=== PATIENT | female | born 1970 | race Caucasian/White ===

== ENCOUNTER 2019-12-22 00:06 | Emergency (ER) | payer OTHER ==
[2019-12-22] MEDS ORDERED: Zofran 4 MG/2 ML VIAL IV ONE (00:38)
[2019-12-22] MEDS ORDERED: TORAdol 30 mg Injection IV ONE (00:38)
--- NOTE | 2019-12-22 00:38 | ERPHSYRPT ---
- History of Present Illness Time Seen by Provider: 12/22/19 00:33 Historian: patient Exam Limitations: no limitations Physician History: For the past week pt has had LLQ abdominal/Left flank pain and nausea, worse in the past hour. Pt states she has had hematuria for the past 4 days and diaphoresis today. Pt denies chest pain, shortness of air, fever. Allergies/Adverse Reactions: codeine [Codeine] Allergy (Severe, Verified 12/22/19 00:41) SWELLING OF EYES/VOMITING Penicillins Allergy (Severe, Verified 12/22/19 00:41) CONVULSIONS states convulsions strawberry Allergy (Verified 12/22/19 00:41) adhesive Adverse Reaction (Intermediate, Verified 12/22/19 00:41) SKIN TEARS tears skin lactose Adverse Reaction (Mild, Verified 12/22/19 00:41) Diarrhea pneumonia Adverse Reaction (Mild, Uncoded 12/13/14 12:57) FEVER high fever ( pneumonia vaccine) Home Medications: Phentermine HCl [Adipex-P] 37.5 mg PO DAILY 12/22/19 [History] Tamsulosin HCl 0.4 mg [Flomax 0.4 MG] 0.4 mg PO DAILY 12/22/19 [History] Hx Tetanus, Diphtheria Vaccination/Date Given: No Hx Influenza Vaccination/Date Given: No Hx Pneumococcal Vaccination/Date Given: No Travel Risk - International Travel Have you traveled outside of the country in past 3 weeks: No Have you or anyone close to you been diagnosed with or: No Do your reside in a community with a known COVID-19 case?: Yes If Yes where:: pool, in. - Coronavirus Screening Has patient experienced Coronavirus symptoms: No - Review of Systems Constitutional: Other (diaphoresis), No Fever Respiratory: No Dyspnea Cardiac: No Chest Pain Abdominal/Gastrointestinal: Abdominal Pain, Nausea Genitourinary Symptoms: Hematuria All Other Systems: Reviewed and Negative - Past Medical History Pertinent Past Medical History: Yes Neurological History: Migraines ENT History: No Pertinent History Cardiac History: Hypertension Respiratory History: Asthma, Pneumonia Endocrine Medical History: No Pertinent History Musculoskeletal History: Fractures, Rheumatoid Arthritis GI Medical History: Gallbladder Disease History: No Pertinent History Psycho-Social History: No Pertinent History Female Reproductive Disorders: Endometriosis, Other Other Medical History: cyst on ovaries - Past Surgical History Past Surgical History: Yes Neuro Surgical History: No Pertinent History Cardiac: No Pertinent History Respiratory: No Pertinent History Gastrointestinal: Appendectomy, Cholecystectomy Genitourinary: No Pertinent History Musculoskeletal: Orthopedic Surgery Female Surgical History: Hysterectomy Other Surgical History: lt foot surgery with plate screws placed.partial hysterectomy, left ovaries in - Social History Smoking Status: Never smoker Exposure to second hand smoke: No Drug Use: none Patient Lives Alone: No - Nursing Vital Signs Nursing Vital Signs: Initial Vital Signs Temperature 97.6 F 12/22/19 00:27 Pulse Rate 81 12/22/19 00:27 Respiratory Rate 19 12/22/19 00:27 Blood Pressure 157/96 12/22/19 00:27 O2 Sat by Pulse Oximetry 97 12/22/19 00:27 Pain Scale Pain Intensity 5 - Physical Exam General Appearance: alert Eye Exam: eyes nml inspection Ears, Nose, Throat Exam: moist mucous membranes Neck Exam: normal inspection Respiratory Exam: lungs clear Cardiovascular Exam: normal heart sounds Gastrointestinal/Abdomen Exam: soft, normal bowel sounds Extremity Exam: No pedal edema Neurologic Exam: alert, cooperative Skin Exam: warm, dry SpO2 Interpretation: normal SpO2: 97 O2 Delivery: Room Air - Course Nursing assessment & vital signs reviewed: Yes - CT Exams Abdomen/Pelvis CT Interpretation: Tele-radiologist Report (7mm proximal left ureteral stone results in hydronephrosis.) Ordered Tests: Active Orders 24 hr Category Date Time Status IV Insertion STAT Care 12/22/19 00:38 Active ABDOMEN AND PELVIS W/0 CONTRAS [CT] Stat Exams 12/22/19 00:39 Taken AMYLASE Stat Lab 12/22/19 01:04 Completed CBC W DIFF Stat Lab 12/22/19 01:04 Completed CMP Stat Lab 12/22/19 01:04 Completed CULTURE,URINE Stat Lab 12/22/19 02:00 Received HCG QUALITATIVE,SERUM Stat Lab 12/22/19 01:04 Completed LIPASE Stat Lab 12/22/19 01:04 Completed MAGNESIUM Stat Lab 12/22/19 01:04 Completed UA W/RFX UR CULTURE Stat Lab 12/22/19 02:00 Completed Medication Summary Generic Name Dose Route Start Last Admin Trade Name Freq PRN Reason Stop Dose Admin Sodium Chloride 1,000 mls @ 100 mls/hr 12/22/19 00:45 12/22/19 00:51 Sodium Chloride 0.9% 1000 Ml IV 01/21/20 00:44 100 mls/hr .Q10H KAITLIN Administration Discontinued Medications Generic Name Dose Route Start Last Admin Trade Name Juan Pabloq PRN Reason Stop Dose Admin Ketorolac Tromethamine 30 mg 12/22/19 00:38 12/22/19 00:51 Toradol 30 Mg Injection IV 12/22/19 00:39 30 mg STAT ONE Administration Ketorolac Tromethamine Confirm 12/22/19 00:46 Toradol 30 Mg Injection Administered 12/22/19 00:47 Dose 30 mg .ROUTE .STK-MED ONE Ondansetron HCl 4 mg 12/22/19 00:38 12/22/19 00:51 Zofran 4 Mg/2 Ml Vial IV 12/22/19 00:39 4 mg STAT ONE Administration Ondansetron HCl Confirm 12/22/19 00:45 Zofran 4 Mg/2 Ml Vial Administered 12/22/19 00:46 Dose 4 mg .ROUTE .STK-MED ONE Lab/Rad Data: Laboratory Result Diagrams 12/22/19 01:04 12/22/19 01:04 Laboratory Results 12/22/19 12/22/19 12/22/19 Range/Units 02:00 01:04 01:04 WBC (4.0-10.5) K/mm3 RBC (4.1-5.4) M/mm3 Hgb (12.0-16.0) gm/dl Hct (35-47) % MCV (78-100) fl MCH (26-32) pg MCHC (32-36) g/dl RDW (11.5-14.0) % Plt Count (150-450) K/mm3 MPV (7.5-11.0) fl Gran % (36.0-66.0) % Eos # (Auto) (0-0.5) Absolute Lymphs (auto) (1.0-4.6) Absolute Monos (auto) (0.0-1.3) Lymphocytes % (24.0-44.0) % Monocytes % (0.0-12.0) % Eosinophils % (0.00-5.0) % Basophils % (0.0-0.4) % Absolute Granulocytes (1.4-6.9) Basophils # (0-0.4) Sodium (137-145) mmol/L Potassium (3.5-5.1) mmol/L Chloride (98-107) mmol/L Carbon Dioxide (22-30) mmol/L Anion Gap (5-15) MEQ/L BUN (7-17) mg/dL Creatinine (0.52-1.04) mg/dL Estimated GFR ML/MIN Glucose (74-106) mg/dL Calcium (8.4-10.2) mg/dL Magnesium 2.0 (1.6-2.3) mg/dL Total Bilirubin (0.2-1.3) mg/dL AST (14-36) U/L ALT (0-35) U/L Alkaline Phosphatase (38-126) U/L Serum Total Protein (6.3-8.2) g/dL Albumin (3.5-5.0) g/dL Amylase (30-110) U/L Lipase (23-300) U/L Serum , Qual NEGATIVE (Negative) Urine Color YELLOW (YELLOW) Urine Appearance CLEAR (CLEAR) Urine pH 7.0 (5-6) Ur Specific [place] 1.010 (1.005-1.025) Urine Protein NEGATIVE (Negative) Urine Ketones NEGATIVE (NEGATIVE) Urine Blood LARGE (0-5) Jass/ul Urine Nitrite NEGATIVE (NEGATIVE) Urine Bilirubin NEGATIVE (NEGATIVE) Urine Urobilinogen NEGATIVE (0-1) mg/dL Ur Leukocyte Esterase NEGATIVE (NEGATIVE) Urine WBC (Auto) 11-15 (0-5) /HPF Urine RBC (Auto) >101 (0-2) /HPF U Epithel Cells (Auto) FEW (FEW) /HPF Urine Bacteria (Auto) RARE (NEGATIVE) /HPF Unidentified Crystals 2-5 (NEGATIVE) /HPF Urine Mucus (Auto) SLIGHT (NEGATIVE) /HPF Urine Culture Reflexed YES (NO) Urine Glucose NEGATIVE (NEGATIVE) mg/dL 12/22/19 12/22/19 Range/Units 01:04 01:04 WBC 9.8 (4.0-10.5) K/mm3 RBC 4.35 (4.1-5.4) M/mm3 Hgb 13.9 (12.0-16.0) gm/dl Hct 40.6 (35-47) % MCV 93.3 (78-100) fl MCH 32.0 (26-32) pg MCHC 34.2 (32-36) g/dl RDW 13.0 (11.5-14.0) % Plt Count 223 (150-450) K/mm3 MPV 13.4 H (7.5-11.0) fl Gran % 73.3 H (36.0-66.0) % Eos # (Auto) 0.16 (0-0.5) Absolute Lymphs (auto) 1.92 (1.0-4.6) Absolute Monos (auto) 0.52 (0.0-1.3) Lymphocytes % 19.6 L (24.0-44.0) % Monocytes % 5.3 (0.0-12.0) % Eosinophils % 1.6 (0.00-5.0) % Basophils % 0.2 (0.0-0.4) % Absolute Granulocytes 7.18 H (1.4-6.9) Basophils # 0.02 (0-0.4) Sodium 141 (137-145) mmol/L Potassium 3.9 (3.5-5.1) mmol/L Chloride 109 H (98-107) mmol/L Carbon Dioxide 21 L (22-30) mmol/L Anion Gap 14.8 (5-15) MEQ/L BUN 14 (7-17) mg/dL Creatinine 0.85 (0.52-1.04) mg/dL Estimated GFR > 60.0 ML/MIN Glucose 108 H (74-106) mg/dL Calcium 9.6 (8.4-10.2) mg/dL Magnesium (1.6-2.3) mg/dL Total Bilirubin 0.50 (0.2-1.3) mg/dL AST 31 (14-36) U/L ALT 22 (0-35) U/L Alkaline Phosphatase 67 (38-126) U/L Serum Total Protein 7.6 (6.3-8.2) g/dL Albumin 4.3 (3.5-5.0) g/dL Amylase 85 (30-110) U/L Lipase 89 (23-300) U/L Serum , Qual (Negative) Urine Color (YELLOW) Urine Appearance (CLEAR) Urine pH (5-6) Ur Specific [place] (1.005-1.025) Urine Protein (Negative) Urine Ketones (NEGATIVE) Urine Blood (0-5) Jass/ul Urine Nitrite (NEGATIVE) Urine Bilirubin (NEGATIVE) Urine Urobilinogen (0-1) mg/dL Ur Leukocyte Esterase (NEGATIVE) Urine WBC (Auto) (0-5) /HPF Urine RBC (Auto) (0-2) /HPF U Epithel Cells (Auto) (FEW) /HPF Urine Bacteria (Auto) (NEGATIVE) /HPF Unidentified Crystals (NEGATIVE) /HPF Urine Mucus (Auto) (NEGATIVE) /HPF Urine Culture Reflexed (NO) Urine Glucose (NEGATIVE) mg/dL - Progress Progress: unchanged Discussed with : Other (spoke with Dr Platt([id number]) who [facility] Counseled pt/family regarding: lab results, rad results - Departure Departure Disposition: Transfer ([facility]) Clinical Impression: Renal colic on left side Condition: Stable Critical Care Time: No Referrals: HUONG CRUZ NP [Primary Care Provider] -
[2019-12-22] MEDS ORDERED: Zofran 4 MG/2 ML VIAL ONE (00:45)
[2019-12-22] MEDS ORDERED: Sodium Chloride 0.9% 1000 ML 1,000 ML IV SCH (00:45)
[2019-12-22] MEDS ORDERED: TORAdol 30 mg Injection ONE (00:46)
[2019-12-22] MEDS ORDERED: Sodium Chloride 0.9% 1000 ML 1,000 ML ONE (00:47)
[2019-12-22 01:39] LABS: Absolute Neutrophil Ct (ANC) 7.18 (1.4-6.9); BASOPHIL % 0.2 % (0.0-0.4); Basophil (Absolute #) 0.02 (0-0.4); Eosinophil % 1.6 % (0.00-5.0); Eosinophil (Absolute #) 0.16 (0-0.5); Hematocrit 40.6 % (35-47); Hemoglobin 13.9 gm/dl (12.0-16.0); Lymphocyte (Absolute #) 1.92 (1.0-4.6); Lymphocytes % 19.6 % (24.0-44.0); Mean Cell Volume 93.3 fl (78-100); Mean Corpuscular Hgb Concent. 34.2 g/dl (32-36); Mean Platelet Volume 13.4 fl (7.5-11.0); Monocyte (Absolute #) 0.52 (0.0-1.3); Monocytes % 5.3 % (0.0-12.0); Neutrophil % 73.3 % (36.0-66.0); Platelet Count 223 K/mm3 (150-450); Red Blood Count 4.35 M/mm3 (4.1-5.4); White Blood Count 9.8 K/mm3 (4.0-10.5)
[2019-12-22 02:06] VITALS: O2SAT 97
[2019-12-22 02:47] LABS: ALBUMIN 4.3 g/dL (3.5-5.0); ALKALINE PHOSPHATASE 67 U/L (38-126); AMYLASE 85 U/L (30-110); ANION GAP 14.8 MEQ/L (5-15); BLOOD UREA NITROGEN 14 mg/dL (7-17); CHLORIDE 109 mmol/L (98-107); Calcium 9.6 mg/dL (8.4-10.2); Carbon Dioxide 21 mmol/L (22-30); Creatinine 1 0.85 mg/dL (0.52-1.04); Glucose 108 mg/dL (74-106); LIPASE 89 U/L (23-300); Potassium 3.9 mmol/L (3.5-5.1); SGOT/AST 31 U/L (14-36); SGPT/ALT 22 U/L (0-35); SODIUM 141 mmol/L (137-145); Total Protein 7.6 g/dL (6.3-8.2)
[2019-12-22 02:47] LABS: Appearance CLEAR (CLEAR); Bacteria RARE /HPF (NEGATIVE); Bilirubin NEGATIVE (NEGATIVE); Blood LARGE Ery/ul (0-5); Epithelial Cells FEW /HPF (FEW); Glucose NEGATIVE (NEGATIVE); Ketones NEGATIVE (NEGATIVE); Leukocyte Esterase NEGATIVE (NEGATIVE); Mucus SLIGHT /HPF (NEGATIVE); Nitrite NEGATIVE (NEGATIVE); Protein,Urine Dip NEGATIVE (Negative); Urobilinogen NEGATIVE mg/dL (0-1)
[2019-12-22 02:50] LABS: RBC >101 /HPF (0-2)
[2019-12-22 03:51] VITALS: BP 147/76; PULSE 84
[2019-12-22 05:16] LABS: Slide Review 1 YES
--- NOTE | 2019-12-22 08:42 | XRAY ---
Indication: Left flank pain. History stones. Multiple contiguous axial images obtained through the abdomen and pelvis without contrast as ordered. Comparison: None Lung bases are clear. Heart is not enlarged. Small hiatal hernia. Noncontrasted stomach and bowel loops appear nonobstructed. Patient reports appendectomy, cholecystectomy, and partial hysterectomy. 7 mm left UPJ calculus. Mild left-sided hydronephrosis consistent with obstructive uropathy. No perinephric fluid. Remaining liver, pancreas, spleen, adrenal glands, right kidney, right ureter, bladder, and aorta appear unremarkable for noncontrast exam. Osseous structures intact Impression: 1. 7 mm left UPJ calculus producing partial obstruction. 2. Small hiatal hernia. 3. Remaining CT abdomen/pelvis without contrast exam is negative. Comment: Preliminary interpretation was made by [facility]. No critical discrepancy.
== END 2019-12-22 03:50 | disposition short-term general hospital (02) ==
LOC: ED 00:06
DX: N23 Unspecified renal colic (principal); I10 Essential (primary) hypertension; J45.909 Unspecified asthma, uncomplicated
CPT/HCPCS: 36000; 36415; 74176; 80053; 81001; 81025; 82150; 83690; 83735; 85025; 87086; 96360; 96361; 96374; 96375; 99285; J1885; J2405

== ENCOUNTER 2020-08-28 06:26 | Day surgery (SDC) | payer OTHER ==
[2020-08-28] MEDS ORDERED: XYLOCAINE 1% HCL 20 ML MDV ONE (06:33)
[2020-08-28] MEDS ORDERED: BUPIVACAINE 0.5% VIAL IJ ONE (06:33)
[2020-08-28] MEDS ORDERED: VANCOCIN 1 GM VIAL IV ONE (06:33)
[2020-08-28] MEDS ORDERED: Lactated Ringers 1,000 ML IV ONE ×2 (06:33→06:51)
[2020-08-28] MEDS ORDERED: Pepcid 20 MG VIAL IV ONE (06:39)
[2020-08-28] MEDS ORDERED: Transderm Scop 1.5MG Patch TOP PRN (06:39)
[2020-08-28] MEDS ORDERED: Reglan 10 MG/2 ML IV ONE (06:39)
[2020-08-28] MEDS ORDERED: CLINDAMYCIN-D5W 900 MG/50 ML*** 900 MG/50 ML BAG IV STA (06:41)
[2020-08-28] MEDS ORDERED: Reglan 10 MG/2 ML ONE (06:51)
[2020-08-28] MEDS ORDERED: CLINDAMYCIN-D5W 900 MG/50 ML*** 900 MG/50 ML BAG IV ONE (06:57)
[2020-08-28] MEDS ORDERED: Lactated Ringers 1,000 ML IV SCH (07:00)
[2020-08-28] MEDS ORDERED: Propofol 1000 mg/100 ml Bottle IV ONE (07:01)
[2020-08-28] MEDS ORDERED: Versed 2 MG/2 ML Injection ONE (07:55)
[2020-08-28] MEDS ORDERED: DIPRIVAN 200 MG/20 ML IV ONE (08:03)
[2020-08-28] MEDS ORDERED: Zemuron 100 MG/10 ML ONE ×3 (08:03→09:55)
[2020-08-28] MEDS ORDERED: SUBLIMAZE 250 MCG/5 ML ONE (08:03)
[2020-08-28] MEDS ORDERED: Decadron 4 MG INJ ONE (08:28)
[2020-08-28] MEDS ORDERED: SUBLIMAZE 100 MCG/2 ML ONE ×2 (10:02→11:03)
[2020-08-28] MEDS ORDERED: Zofran 4 MG/2 ML VIAL ONE (10:13)
[2020-08-28] MEDS ORDERED: TORAdol 30 mg Injection ONE (10:14)
[2020-08-28] MEDS ORDERED: BRIDION 200MG/2ML IV ONE (10:23)
--- NOTE | 2020-08-28 10:30 | XRAY ---
Indication: Arthroscopy. Intraoperative fluoroscopy was provided for 50 seconds. 6 digital spot images of the left ankle submitted for interpretation demonstrates lateral malleolus drilling with subsequent radiolucency. Correlate with intraoperative findings/report.
--- NOTE | 2020-08-28 10:38 | XRAY ---
50 seconds fluoroscopy time in surgery for left ankle arthroscopy and brostram-hutchins internal brace.
[2020-08-28] MEDS ORDERED: Hydromorphone 1 mg/ml Injection ONE (11:04)
[2020-08-28] MEDS ORDERED: Compazine 10 MG/2 ML ONE (11:05)
[2020-08-28 15:03] VITALS: O2SAT 100
[2020-08-28 15:08] VITALS: BP 136/84; PULSE 84
--- NOTE | 2020-09-01 08:32 | OP ---
SURGERY DATE/TIME: 08/28/2020 0804 PREOPERATIVE DIAGNOSES: 1) Lateral ankle instability left ankle. 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 3) Ankle pain left ankle. POSTOPERATIVE DIAGNOSES: 1) Lateral ankle instability left ankle. 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 3) Ankle pain left ankle. PROCEDURE: Ankle arthroscopy with synovectomy and lateral ankle stabilization with internal brace SURGEON: Fernando Arrieta DPM. TECHNICIANS AND TRADES WORKERS: None. ANESTHESIA: General plus a postoperative local block. HEMOSTASIS: Thigh tourniquet set to 350 mm of Mercury for 74 minutes, total tourniquet time. ESTIMATED BLOOD LOSS: Less than 30 cc of blood. MATERIALS: Arthrex internal brace with two PEEK bone anchors, 2-0 Vicryl, 3-0 Nylon and two fiber tack suture anchors. INJECTABLES: 30 cc of a 1:1 mixture of 0.5% bupivacaine plain and 1% lidocaine plain for a total of 30 cc injected in a proximal ankle block-type fashion. DESCRIPTION OF PROCEDURE AND FINDINGS: After adequate assessment by the anesthesia team, the patient was brought into the OR and placed on the OR table in the supine position after adequate general anesthesia was administered. The patient's left lower extremity was prepped and draped in the typical sterile fashion and lowered onto the surgical field. Prior to this, a well-padded thigh tourniquet was placed and the tourniquet was set to 350 mm of Mercury. An 18 gauge needle with 30 cc of sterile saline was injected to insufflate the joint. At this time attention was directed to the left lower extremity where a small stab incision was made just through the immediate skin at the level of the ankle joint just distal to the ankle joint with an 11 blade just medial to tibialis anterior tendon. This was then deepened utilizing blunt dissection with a curved hemostat down to the capsule. At the time the capsule was punctured and a small amount of joint fluid was identified. At this time the blunt trocar as well as the cannula was inserted into the left ankle joint and an arthroscope was introduced into the ankle joint. Upon doing so, the light was identified at the lateral aspect of the capsule. Prior to incision there was identification of the lateral branch of the superficial peroneal nerve with plantar flexion of the foot as well as plantar flexion of the toe. With careful dissection lateral to the aspect of this nerve, an additional percutaneous incision was made just through the skin and was deepened utilizing a curved mini-hemostat down to the capsule again. Joint fluid was noted to daley out once this occurred. At this time the shaver was introduced and the synovectomy portion of the procedure took place. At this point multiple pictures were taken of the extensive degenerative changes and scar tissue as well as synovitis to the ankle joint with particular interest to the medial and lateral gutters. At the lateral aspect the ATFL (anterior talofibular ligament) was identified and was noted to have a partial rupture as well as fraying at the lateral proximal aspect of the ligament. On inspection of the syndesmosis, the ATFL and the deep deltoid ligament all looked to be intact without any complications. The synovitis was debrided extensively for approximately 25 minutes time. At this time the arthroscope and shaver were removed from the ankle joint. Dorsiflexion and plantar flexion motions were utilized to remove any of the remaining fluid from inside the joint and an Esmarch was applied to the leg in order to exsanguinate the leg in total. The tourniquet was then inflated and the lateral ankle stabilization portion of the procedure began. An incision was made approximately 2 cm from the distal tip of the fibula of the left ankle in a linear-type fashion parallel to the anatomical course of the ATFL ligament. At this time the anterior aspect of the fibula was identified and the ATFL was identified as well as the extensor retinaculum. These were all out. A small cuff of approximately 2 mm of the ATFL was left intact to the fibula and a linear set up / operator parallel with the longitudinal axis of the fibula was made into the ankle joint from the lateral aspect this was confirmed with a daley of some of the arthroscopic as well as joint fluid coming out of the joint and the lateral aspect of the talar body being identified. At this time the ATFL was resected in its entirety at its most proximal attachment point and reflected in order to identify the beginning of the talar neck at this time. An internal brace anchor was used to place its distal arm into the body of the talus at a 45 degree angle and exiting out of the distal extent of the ATFL so as not to protrude through the extensor retinaculum later which would be included in the Brostrom portion of the repair. At this time a periosteal sleeve was elevated off the distal aspect of the fibula and two suture anchors were implanted into the anterior aspect of the fibula so as not to violate the joint. At this point the Brostrom portion of the procedure was completed utilizing the fiber tacks tacking from proximal to distal aspect of the ATFL and securing it with the foot in a dorsiflexed and everted position. At this time the internal brace fibular proximal portion was secured into the fibula so as not to violate the joint once again and the internal brace portion of the procedure was completed. At this time a second pass of the Brostrom lens was moved over the internal brace in order to capture the extensor retinaculum and strengthen the repair site this was tied using hand ties and the surgical site was then cleansed with copious amounts of sterile saline. A 2-0 Nylon, 2-0 Vicryl was then utilized to coapt the subcutaneous skin edges and then 3-0 Nylon was utilized to reapproximate the skin edges in an everted position with interrupted horizontal mattress-type sutures. At this time a postoperative dressing consisting of betadine, Adaptic, 4x4, Kerlix and HOLLI as well as a posterior splint and cast padding were utilized to secure the lower extremity. The tourniquet was dropped at 74 minutes total tourniquet time. The patient was returned to the postoperative anesthesia care unit with vital signs stable and vascular status intact. The patient handled the anesthesia as well as the procedure without significant complication. Postoperative orders as described in postoperative notes.
== END 2020-08-28 14:35 | disposition home or self-care (01) ==
LOC: SDC 06:26
PROVIDERS: ATTEND Podiatrist Foot & Ankle Surgery
DX: M25.372 Other instability, left ankle (principal); S93.492A Sprain of other ligament of left ankle, initial encounter; M25.572 Pain in left ankle and joints of left foot
CPT/HCPCS: 73600; 76000; J1100; J1170; J1885; J2250; J2405; J2704; J3010; J3370; A9270-GY

== ENCOUNTER 2022-11-14 11:55 | Day surgery (SDC) | payer OTHER ==
--- NOTE | 2022-11-14 10:28 | HP ---
DATE OF SURGERY: 11/14/2022 HISTORY OF PRESENT ILLNESS: The patient is a 52-year-old recently diagnosed with core biopsy bilateral breast cancer. She had a lump on the left and had a mammogram and bilateral breast cancer on core biopsy. PAST MEDICAL HISTORY: Includes glaucoma, arthritis, heartburn, reflux, hypertension, anxiety. PAST SURGICAL HISTORY: Cholecystectomy. Appendectomy. section. Kidney surgery. Ankle surgery. Prior benign lumpectomy in the past. Recent core biopsy bilateral positive for carcinoma. Foot surgery. Tubal in the past. MEDICATIONS: Vitamin B, vitamin D3, aspirin, Claritin, lisinopril/hydrochlorothiazide, omeprazole, Ozempic. ALLERGIES: PENICILLIN. CODEINE. HYDROCODONE. LACTOSE. OXYCODONE. LATEX. ADHESIVE. STRAWBERRY. FAMILY HISTORY: Grandmother with breast cancer. Chronic obstructive pulmonary disease. Bladder cancer. SOCIAL HISTORY: No smoking or alcohol abuse. REVIEW OF SYSTEMS: Fourteen systems reviewed. No chest pain or palpitations. Other systems negative or noncontributory as above and per preadmission questionnaire. PHYSICAL EXAMINATION: GENERAL: No acute distress. HEENT: Sclerae nonicteric. NECK: No JVD. CHEST: Equal excursion, nonlabored breathing. CVS: Regular rate and rhythm. ABDOMEN: Soft. EXTREMITIES: No significant edema. NEURO: Alert, oriented, moving extremities symmetrically. PSYCH: Appropriate mood and affect. SKIN: Dry. BREAST: Lesion bilaterally. IMPRESSION: Bilateral breast cancer. At the initial time of her office visit the patient was discussed options of breast conserving therapy versus mastectomy, plus or minus reconstruction as well as [place] lymph node biopsy. She prefers to consider bilateral mastectomy. Dr. Brown called and because she is HER-2 positive will start with neoadjuvant chemotherapy prior to proceeding with mastectomy. He said her BRCA gene testing was still pending. Therefore, he prefers to go ahead with port placement first and then later consider bilateral mastectomy. General risk of port placement including but not limited to bleeding, infection, risk of thrombosis or pneumothorax, risk of port/catheter fracture or failure, infection possibly requiring removal. Risk of deep venous thrombosis, pulmonary embolism, risk of cardiopulmonary event, remote risk of pneumothorax, general risk of aches and pains but not limited to. Consent obtained. Bilateral breast cancer need for neoadjuvant treatment, will place a Port-A-Cath for room server IV access for IV treatments.
[~2022-11-14 11:55] MED LIST: XYLOCAINE 1% HCL 20 ML MDV ONE
[2022-11-14] MEDS ORDERED: Lactated Ringers 1,000 ML IV SCH (12:30)
[2022-11-14] MEDS ORDERED: Levofloxacin 500MG/100ML D5W 500 MG/100 ML BAG IV SCH (12:30)
[2022-11-14] MEDS ORDERED: Lactated Ringers 1,000 ML IV ONE (12:33)
[2022-11-14] MEDS ORDERED: Levofloxacin 500MG/100ML D5W 500 MG/100 ML BAG IV ONE (12:33)
[2022-11-14] MEDS ORDERED: Pepcid 20 MG VIAL IV ONE (13:53)
[2022-11-14] MEDS ORDERED: Transderm Scop 1.5MG Patch TOP PRN (13:53)
[2022-11-14] MEDS ORDERED: Versed 2 MG/2 ML Injection ONE (14:53)
[2022-11-14] MEDS ORDERED: SUBLIMAZE 100 MCG/2 ML ONE (14:53)
[2022-11-14] MEDS ORDERED: DIPRIVAN 200 MG/20 ML IV ONE ×2 (14:53→15:25)
[2022-11-14] MEDS ORDERED: Xylocaine-Mpf 2% 5 Ml Vial ONE (14:53)
[2022-11-14] MEDS ORDERED: Decadron 4 MG INJ ONE ×2 (15:04→15:05)
[2022-11-14] MEDS ORDERED: Zofran 4 MG/2 ML VIAL ONE (15:05)
[2022-11-14] MEDS ORDERED: CLINDAMYCIN-D5W 600 MG/50 ML IV ONE (15:29)
--- NOTE | 2022-11-14 16:16 | XRAY ---
Indication: Port placement. Comparison: None Intraoperative fluoroscopy provided for 3 seconds. Single digital spot image submitted for interpretation demonstrates left Port-A-Cath with tip presumed in the SVC. Correlate with intraoperative findings/report.
[2022-11-14 16:37] VITALS: PULSE 73; O2SAT 94
[2022-11-14 16:42] VITALS: BP 136/89
--- NOTE | 2022-11-15 12:59 | OP ---
SURGERY DATE/TIME: 11/14/2022 1710 PREOPERATIVE DIAGNOSIS: Bilateral breast cancer, need for Port-A-Cath for neoadjuvant therapy. POSTOPERATIVE DIAGNOSIS: Bilateral breast cancer, need for Port-A-Cath for neoadjuvant therapy. PROCEDURES: Tunnel Port-A-Cath placement with C-arm fluoroscopy left subclavian vein. SURGEON: Dr. Tu Ro. ANESTHESIA: MAC. 1% lidocaine local. ESTIMATED BLOOD LOSS: Minimal. INDICATIONS: As noted above. The port risks and benefits had been explained in the office and consent obtained. DESCRIPTION OF PROCEDURE AND FINDINGS: MAC anesthesia introduced. She was prepped and draped in usual sterile fashion. After official time out and no disagreement with planned procedure, in Trendelenburg position and 1% Lidocaine local was infiltrated left subclavicular area. 18 gauge needle inserted on first pass. Good dark nonpulsatile venous return. Guide wire passed without difficulty and confirmed down the superior vena cava followed by anesthetizing the tunnel track and port pocket. Tried to keep this port up high as she will eventually need mastectomy per the patient's request. She has bilateral breast cancer. Created subcu port secured to the chest wall with Prolene suture x2. Catheter tunneled down from cannulation stab wound down to port pocket area. The dilator and break away sheath easily passed over the guide wire. Catheter fed down and the tip was in the distal superior vena cava right atrial area on C-arm fluoroscopy. Lung chowdhury noted to be up bilaterally. Catheter is cut to appropriate length snapped on the port with the hub. The port was a little bit sluggish when aspirating blood but it flushed with ease and carefully insuring there was no visible kink in the short track where it was going down to the vein this was carefully accomplished. Again, the port was flushed with heparinized saline with ease. The tip was in good location as possible. It was felt no further x-rays were necessary. Subcu closed with 3-0 Vicryl, skin closed with 4-0 Vicryl. Cannulation stab wound closed with 4-0 Vicryl. Steri-Strips and sterile dressing applied. The patient tolerated the procedure well. There were no immediate complications.
== END 2022-11-14 17:00 | disposition home or self-care (01) ==
LOC: SDC 11:55
PROVIDERS: ATTEND Surgery
DX: C50.912 Malignant neoplasm of unspecified site of left female breast (principal); C50.911 Malignant neoplasm of unspecified site of right female breast; Z45.2 Encounter for adjustment and management of vascular access device; Z80.52 Family history of malignant neoplasm of bladder; Z79.899 Other long term (current) drug therapy
CPT/HCPCS: 36561; 76937; 77001; 82947; C1788; J1100; J1642; J1956; J2250; J2405; J2704; J3010; A9270-GY

== ENCOUNTER 2022-12-23 15:11 | Emergency (ER) | payer OTHER ==
--- NOTE | 2022-12-23 15:14 | ERPHSYRPT ---
- History of Present Illness Time Seen by Provider: 12/23/22 15:14 Source: patient Exam Limitations: no limitations Physician History: This is a 52-year-old white female patient of nurse practitioner Tiara and pocketbook maker/oncologist Dr. Dumont. Patient was brought down after rapid response was called in the hospital here at [facility]. 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 She has been complaining of increasing weakness and fatigue and generally not feeling well. She has a mild headache 2/10. She is nauseated but she has not vomited. She is receiving chemotherapy. She was supposed to receive chemotherapy today but her white blood cell count was too low. Her last chemotherapy was 1 week ago. Patient is being treated for bilateral breast invasive ductal carcinoma. Patient has a history of hypertension, anxiety, gastroesophageal reflux disease and diabetes. Timing/Duration: today Severity: moderate Character of Deficits: new weakness (Generalized) Baseline/Normal Cognition: alert oriented x 3 Current Cognition: alert oriented x 3 Baseline Gait: walks w/o assistance Associated Symptoms: fatigue, nausea, weakness, headache (Mild) Allergies/Adverse Reactions: codeine [Codeine] Allergy (Severe, Verified 12/23/22 15:12) SWELLING OF EYES/VOMITING hydrocodone Allergy (Severe, Verified 12/23/22 15:12) Swelling of Tongue and Lips Latex, Natural Rubber Allergy (Severe, Verified 12/23/22 15:12) Blisters oxycodone [From Percocet] Allergy (Severe, Verified 12/23/22 15:12) Swelling of Tongue and Lips Penicillins Allergy (Severe, Verified 12/23/22 15:12) CONVULSIONS states convulsions strawberry Allergy (Severe, Verified 12/23/22 15:12) Anaphylactic Reaction adhesive Adverse Reaction (Intermediate, Verified 12/23/22 15:12) SKIN TEARS tears skin lactose Adverse Reaction (Mild, Verified 12/23/22 15:12) Diarrhea pneumonia Adverse Reaction (Mild, Uncoded 12/23/22 15:12) FEVER high fever ( pneumonia vaccine) Home Medications: Ascorbic Acid [Vitamin C] 500 mg PO DAILY 11/11/22 [History] Aspirin [[place]azalore] 81 mg PO DAILY 11/11/22 [History] Cholecalciferol (Vitamin D3) [Vitamin D3] 10 mcg PO DAILY 11/11/22 [History] Lisinopril/Hydrochlorothiazide [Lisinopril-Hctz 10-12.5 mg Tab] 1 each PO DAILY 11/11/22 [History] Loratadine 10 mg [Claritin 10 mg] 10 mg PO DAILY 11/11/22 [History] Non-Formulary Drug [Non-Formulary Item] 1 each PO UD 11/11/22 [History] Omeprazole 40 mg PO DAILY 11/11/22 [History] Semaglutide [Ozempic] 0.25 mg SQ WEEKLY 11/11/22 [History] Alprazolam [Xanax] 0.5 mg PO QHS PRN 11/14/22 [History] Cyanocobalamin (Vitamin B-12) [Cyanocobalamin Injection] 1,000 mcg IJ UD 11/14/22 [History] Hx Tetanus, Diphtheria Vaccination/Date Given: No Hx Influenza Vaccination/Date Given: No Hx Pneumococcal Vaccination/Date Given: No Travel Risk - International Travel Have you traveled outside of the country in past 3 weeks: No - Coronavirus Screening Are you exhibiting any of the following symptoms?: No Close contact with a COVID-19 positive Pt in past 14-21 Days: No - Review of Systems Constitutional: Weakness Eyes: No Symptoms Ears, Nose, & Throat: No Symptoms Respiratory: No Symptoms Cardiac: No Symptoms Abdominal/Gastrointestinal: Nausea, No Abdominal Pain, No Vomiting, No Diarrhea Genitourinary Symptoms: No Symptoms Musculoskeletal: No Symptoms Skin: No Symptoms Neurological: Headache (Mild2/10) Psychological: No Symptoms Endocrine: No Symptoms Hematologic/Lymphatic: No Symptoms Immunological/Allergic: No Symptoms All Other Systems: Reviewed and Negative - Past Medical History Pertinent Past Medical History: Yes Neurological History: Migraines ENT History: No Pertinent History Cardiac History: Hypertension Respiratory History: Asthma Endocrine Medical History: Hypoglycemia, Other Musculoskeletal History: Arthritis, Rheumatoid Arthritis GI Medical History: GERD History: Other Psycho-Social History: Anxiety Female Reproductive Disorders: Breast Cancer, Endometriosis, Other Other Medical History: ANKLE SX, 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,hypoglycemia, 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 - Past Surgical History Past Surgical History: Yes Neuro Surgical History: No Pertinent History Cardiac: No Pertinent History Respiratory: No Pertinent History Gastrointestinal: Appendectomy, Cholecystectomy Genitourinary: Kidney Surgery Musculoskeletal: Other Female Surgical History: Section, Tubal Ligation, Lumpectomy Other Surgical History: left ankle with hardware - Social History Smoking Status: Never smoker Exposure to second hand smoke: No Drug Use: none Patient Lives Alone: No - Nursing Vital Signs Nursing Vital Signs: Initial Vital Signs Temperature 99.1 F 12/23/22 15:13 Pulse Rate 105 H 12/23/22 15:13 Respiratory Rate 20 12/23/22 15:13 Blood Pressure 118/75 12/23/22 15:13 O2 Sat by Pulse Oximetry 97 12/23/22 15:13 Pain Scale Pain Intensity 2 - Deirdre Coma Scale Best Eye Response (Deirdre): (4) open spontaneously Best Verbal Response (Deirdre): (5) oriented Best Motor Response (Neeses): (6) obeys commands Neeses Total: 15 - Physical Exam General Appearance: no apparent distress, alert, anxiety, obese Eye Exam: bilateral eye: normal inspection, PERRL, EOMI Ears, Nose, Throat Exam: normal ENT inspection, moist mucous membranes Neck Exam: normal inspection, non-tender, supple, full range of motion Respiratory: normal breath sounds, lungs clear, airway intact, No chest tenderness, No respiratory distress Cardiovascular: normal heart sounds, normal peripheral pulses, tachycardia (Mild) Gastrointestinal: soft, normal bowel sounds, No tenderness Pelvic Exam: not done Rectal Exam: not done Back Exam: normal inspection, normal range of motion, No CVA tenderness, No vertebral tenderness Extremity Exam: normal inspection, normal range of motion, pelvis stable Mental Status: alert, oriented x 3, 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 Exam: normal hearing, normal speech, PERRL, tongue midline Coordination/Gait: normal finger to nose Motor/Sensory: no motor deficit, no sensory deficit, no pronator drift Skin Exam: normal color, warm, dry SpO2 Interpretation: normal O2 Delivery: Room Air - Course Nursing assessment & vital signs reviewed: Yes EKG Interpreted by Me: RATE (105), Sinus Tach, NORMAL AXIS, NORMAL INTERVALS, NORMAL QRS, NORMAL ST-T, Other (No acute ischemic changes on today's twelve-lead EKG) Ordered Tests: Active Orders 24 hr Category Date Time Status EKG-ER Only STAT Care 12/23/22 15:26 Active IV Insertion STAT Care 12/23/22 15:26 Active CHEST 1 VIEW (PORTABLE) Stat Exams 12/23/22 16:17 Taken CBC W DIFF Stat Lab 12/23/22 15:26 Results CMP Stat Lab 12/23/22 15:20 Completed MAGNESIUM Stat Lab 12/23/22 15:20 Completed Manual Differential NC Stat Lab 12/23/22 15:26 Results Pathologist Review Stat Lab 12/23/22 15:26 Results TROPONIN Q4H Lab 12/23/22 15:20 Completed TROPONIN Q4H Lab 12/23/22 19:30 Ordered TROPONIN Q4H Lab 12/23/22 23:30 Ordered UA W/RFX UR CULTURE Stat Lab 12/23/22 16:39 Completed Medication Summary Generic Name Dose Route Start Last Admin Trade Name Freq PRN Reason Stop Dose Admin Levofloxacin/Dextrose 500 mg in 100 mls @ 100 mls/hr 12/23/22 16:21 12/23/22 16:31 Levofloxacin 500mg/100ml D5w IV 12/23/22 17:20 100 ml/hr STAT STA 100 mls/hr Administration Sodium Chloride 1,000 mls @ 999 mls/hr 12/23/22 16:28 12/23/22 16:31 Sodium Chloride 0.9% 1000 Ml IV 12/23/22 17:28 999 mls/hr .Q1H1M STA Administration Discontinued Medications Generic Name Dose Route Start Last Admin Trade Name Freq PRN Reason Stop Dose Admin Sodium Chloride 1,000 mls @ 999 mls/hr 12/23/22 15:26 12/23/22 16:37 Sodium Chloride 0.9% 1000 Ml IV 12/23/22 16:26 Infused .Q1H1M STA Infusion Sodium Chloride Confirm 12/23/22 15:34 Sodium Chloride 0.9% 1000 Ml Administered 12/23/22 15:35 Dose 1,000 mls @ ud .ROUTE .STK-MED ONE Sodium Chloride Confirm 12/23/22 16:28 Sodium Chloride 0.9% 1000 Ml Administered 12/23/22 16:29 Dose 1,000 mls @ ud .ROUTE .STK-MED ONE Levofloxacin/Dextrose Confirm 12/23/22 16:28 Levofloxacin 500mg/100ml D5w Administered 12/23/22 16:29 Dose 500 mg in 100 mls @ ud IV .STK-MED ONE Ondansetron HCl 4 mg 12/23/22 15:26 12/23/22 15:34 Ondansetron Hcl 4 Mg/2 Ml Vial IV 12/23/22 15:27 4 mg STAT ONE Administration Ondansetron HCl Confirm 12/23/22 15:34 Ondansetron Hcl 4 Mg/2 Ml Vial Administered 12/23/22 15:35 Dose 4 mg .ROUTE .STK-MED ONE Lab/Rad Data: Laboratory Result Diagrams 12/23/22 15:26 12/23/22 15:20 Laboratory Results 12/23/22 12/23/22 12/23/22 Range/Units 16:39 15:55 15:26 WBC 1.0 L* (4.0-10.5) x10^3/uL RBC 3.68 L (4.1-5.4) x10^6/uL Hgb 11.8 L (12.0-16.0) g/dL Hct 33.5 L (35-47) % MCV 91.0 (78-100) fL MCH 32.1 H (26-32) pg MCHC 35.2 (32-36) g/dL RDW 12.2 (11.5-14.0) % Plt Count 173 (150-450) x10^3/uL MPV 12.7 H (7.5-11.0) fL Gran % 26.3 L (36.0-66.0) % Immature Gran % (Auto) 0.0 (0.00-0.4) % Nucleat RBC Rel Count 0.0 (0.00-0.1) % Eos # (Auto) 0.01 (0-0.5) x10^3/uL Immature Gran # (Auto) 0.00 (0.00-0.03) x10^3u/L Absolute Lymphs (auto) 0.67 L (1.0-4.6) x10^3/uL Absolute Monos (auto) 0.06 (0.0-1.3) x10^3/uL Absolute Nucleated RBC 0.00 (0.00-0.01) x10^3u/L Lymphocytes % 65.0 H (24.0-44.0) % Monocytes % 5.8 (0.0-12.0) % Eosinophils % 1.0 (0.00-5.0) % Basophils % 1.9 (0.0-0.4) % Absolute Granulocytes 0.27 L (1.4-6.9) x10^3/uL Basophils # 0.02 (0-0.4) x10^3/uL Smear Path Review Pending Sodium (137-145) mmol/L Potassium (3.5-5.1) mmol/L Chloride (98-107) mmol/L Carbon Dioxide (22-30) mmol/L Anion Gap (5-15) MEQ/L BUN (7-17) mg/dL Creatinine (0.52-1.04) mg/dL Estimated GFR ML/MIN Glucose (74-106) mg/dL Calcium (8.4-10.2) mg/dL Magnesium (1.6-2.3) mg/dL Total Bilirubin (0.2-1.3) mg/dL AST (14-36) U/L ALT (0-35) U/L Alkaline Phosphatase (38-126) U/L Troponin I (0.000-0.034) ng/mL Serum Total Protein (6.3-8.2) g/dL Albumin (3.5-5.0) g/dL Urine Color Yellow (Yellow) Urine Appearance Clear (Clear) Urine pH 7.5 (4.6-8.0) Ur Specific [place] <=1.005 (1.005-1.030) Urine Protein Negative (Negative) Urine Glucose (UA) Negative (Negative) mg/dL Urine Ketones Negative (Negative) Urine Blood Negative (Negative) Urine Nitrite Negative (Negative) Urine Bilirubin Negative (Negative) Urine Urobilinogen 0.2 (0.2) mg/dL Ur Leukocyte Esterase Negative (Negative) U Hyaline Cast (Auto) NONE SEEN (0-2) /LPF Urine Microscopic RBC 0-2 (0-5) /HPF Urine Microscopic WBC 0-2 (0-5) /HPF Ur Epithelial Cells None Seen (None Seen) /HPF Urine Bacteria None Seen (None Seen) /HPF Urine Culture Reflexed NO (NO) Influenza Type A Ag NEGATIVE (NEGATIVE) Influenza Type B Ag NEGATIVE (NEGATIVE) RSV (PCR) NEGATIVE (NEGATIVE) SARS-CoV-2 (PCR) NEGATIVE (NEGATIVE) 12/23/22 12/23/22 Range/Units 15:20 15:20 WBC (4.0-10.5) x10^3/uL RBC (4.1-5.4) x10^6/uL Hgb (12.0-16.0) g/dL Hct (35-47) % MCV (78-100) fL MCH (26-32) pg MCHC (32-36) g/dL RDW (11.5-14.0) % Plt Count (150-450) x10^3/uL MPV (7.5-11.0) fL Gran % (36.0-66.0) % Immature Gran % (Auto) (0.00-0.4) % Nucleat RBC Rel Count (0.00-0.1) % Eos # (Auto) (0-0.5) x10^3/uL Immature Gran # (Auto) (0.00-0.03) x10^3u/L Absolute Lymphs (auto) (1.0-4.6) x10^3/uL Absolute Monos (auto) (0.0-1.3) x10^3/uL Absolute Nucleated RBC (0.00-0.01) x10^3u/L Lymphocytes % (24.0-44.0) % Monocytes % (0.0-12.0) % Eosinophils % (0.00-5.0) % Basophils % (0.0-0.4) % Absolute Granulocytes (1.4-6.9) x10^3/uL Basophils # (0-0.4) x10^3/uL Smear Path Review Sodium 130 L (137-145) mmol/L Potassium 4.0 (3.5-5.1) mmol/L Chloride 98 (98-107) mmol/L Carbon Dioxide 21 L (22-30) mmol/L Anion Gap 14.5 (5-15) MEQ/L BUN 13 (7-17) mg/dL Creatinine 0.59 (0.52-1.04) mg/dL Estimated GFR > 60.0 ML/MIN Glucose 107 H (74-106) mg/dL Calcium 8.7 (8.4-10.2) mg/dL Magnesium 1.7 (1.6-2.3) mg/dL Total Bilirubin 0.90 (0.2-1.3) mg/dL AST 65 H (14-36) U/L ALT 90 H (0-35) U/L Alkaline Phosphatase 75 (38-126) U/L Troponin I < 0.012 (0.000-0.034) ng/mL Serum Total Protein 7.0 (6.3-8.2) g/dL Albumin 3.9 (3.5-5.0) g/dL Urine Color (Yellow) Urine Appearance (Clear) Urine pH (4.6-8.0) Ur Specific Acworth (1.005-1.030) Urine Protein (Negative) Urine Glucose (UA) (Negative) mg/dL Urine Ketones (Negative) Urine Blood (Negative) Urine Nitrite (Negative) Urine Bilirubin (Negative) Urine Urobilinogen (0.2) mg/dL Ur Leukocyte Esterase (Negative) U Hyaline Cast (Auto) (0-2) /LPF Urine Microscopic RBC (0-5) /HPF Urine Microscopic WBC (0-5) /HPF Ur Epithelial Cells (None Seen) /HPF Urine Bacteria (None Seen) /HPF Urine Culture Reflexed (NO) Influenza Type A Ag (NEGATIVE) Influenza Type B Ag (NEGATIVE) RSV (PCR) (NEGATIVE) SARS-CoV-2 (PCR) (NEGATIVE) - Progress Progress: improved, re-examined Progress Note: 12/23/22 16:[address] Dumont nurse practitioner Kallie and reviewed the work-up results. She told me that the most recent white blood cell count for this patient was 1.9. She stated that Dr. Dumont called in a Z-Howard for her to take today. I will make sure the patient has started on that medication. Kallie also told me patient is to drink plenty of fluids and to use Tylenol and ibuprofen for fever control. She is also to call his office on 12/26/2022 make arrangements for another appointment. 12/23/22 17:09 Chest x-ray interpreted by me. I do not see any acute cardiopulmonary process. Do not see an acute infiltrate present. This patient's medical issue is 1 of moderate complexity. The level of complexity and the work-up performed is based on the review of patient's past medical history and outside labs, discussion of patient's condition and management with outside nurse practitioner of the patient, history present illness and physical findings on examination. The work-up includes placement of an intravenous line, obtaining twelve-lead EKG, infusion of intravenous normal saline, intravenous antibiotics were also infused, CBC was obtained, CMP was obtained, urinalysis and chest x-ray were obtained. I reviewed the results of the studies. The patient has neutropenia. Has a prescription of Z-Howard that was called in today for her to take. 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 She is to drink plenty fluids and to use Tylenol ibuprofen for fever control. She is to speak with her oncologist o terranceice on 12/26/2022 to make arranges for follow-up appointment. Counseled pt/family regarding: lab results, diagnosis, need for follow-up, rad results Medical Desision Making - Discussion of managment Reviewed:: Test results Agreed on:: Treatment plan, need for follow-up - Diagnostic Testing Diagnostic test were ordered, analyzed, and reviewed by me: Yes Radiological Interpretation: Interpreted by me - Risk of complications The pt has a mod risk of morbidity or mortality based on: Need for prescription drug management - Departure Departure Disposition: Home Clinical Impression: Neutropenia Condition: Stable Critical Care Time: No Referrals: HUONG CRUZ NP [Primary Care Provider] - Follow up/PCP as directed Additional Instructions: Drink plenty of fluids. Start your oral antibiotics tonight as an outpatient. Use Tylenol ibuprofen for fever control. Return to the emergency department if symptoms worsen. Follow-up with your primary oncologist on Monday morning, 12/26/2022, to make up arrangements for follow-up appointment. Continue your other medication as prescribed.
[2022-12-23 15:26] VITALS: O2SAT 97
[2022-12-23] MEDS ORDERED: Sodium Chloride 0.9% 1000 ML 1,000 ML IV STA ×2 (15:26→16:28)
[2022-12-23] MEDS ORDERED: Zofran 4 MG/2 ML VIAL IV ONE (15:26)
[2022-12-23] MEDS ORDERED: Zofran 4 MG/2 ML VIAL ONE (15:34)
[2022-12-23] MEDS ORDERED: Sodium Chloride 0.9% 1000 ML 1,000 ML ONE ×2 (15:34→16:28)
[2022-12-23 15:38] LABS: Absolute Neutrophil Ct (ANC) 0.27 x10^3/uL (1.4-6.9); BASOPHIL % 1.9 % (0.0-0.4); Basophil (Absolute #) 0.02 x10^3/uL (0-0.4); Eosinophil (Absolute #) 0.01 x10^3/uL (0-0.5); Hematocrit 33.5 % (35-47); Hemoglobin 11.8 g/dL (12.0-16.0); Lymphocyte (Absolute #) 0.67 x10^3/uL (1.0-4.6); Mean Corpuscular Hemoglobin 32.1 pg (26-32); Mean Corpuscular Hgb Concent. 35.2 g/dL (32-36); Mean Platelet Volume 12.7 fL (7.5-11.0); Monocyte (Absolute #) 0.06 x10^3/uL (0.0-1.3); Monocytes % 5.8 % (0.0-12.0); Neutrophil % 26.3 % (36.0-66.0); Platelet Count 173 x10^3/uL (150-450); Red Blood Count 3.68 x10^6/uL (4.1-5.4); Red Cell Distribution Width 12.2 % (11.5-14.0)
[2022-12-23 15:55] LABS: ALBUMIN 3.9 g/dL (3.5-5.0); ALKALINE PHOSPHATASE 75 U/L (38-126); ANION GAP 14.5 MEQ/L (5-15); BLOOD UREA NITROGEN 13 mg/dL (7-17); CHLORIDE 98 mmol/L (98-107); Calcium 8.7 mg/dL (8.4-10.2); Carbon Dioxide 21 mmol/L (22-30); Creatinine 1 0.59 mg/dL (0.52-1.04); EST GLOMERULAR FILTRATION RATE > 60.0 ML/MIN; Glucose 107 mg/dL (74-106); MAGNESIUM 1.7 mg/dL (1.6-2.3); SGOT/AST 65 U/L (14-36); SGPT/ALT 90 U/L (0-35); SODIUM 130 mmol/L (137-145)
[2022-12-23] MEDS ORDERED: Levofloxacin 500MG/100ML D5W 500 MG/100 ML BAG IV STA (16:21)
[2022-12-23] MEDS ORDERED: Levofloxacin 500MG/100ML D5W 500 MG/100 ML BAG IV ONE (16:28)
[2022-12-23 16:38] LABS: INFLUENZA A NEGATIVE (NEGATIVE); INFLUENZA B NEGATIVE (NEGATIVE); RESPIRATORY SYNCTIAL VIRUS NEGATIVE (NEGATIVE); SARS-CoV-2 Xpert Express NEGATIVE (NEGATIVE)
[2022-12-23 16:47] LABS: Appearance Clear (Clear); Bacteria None Seen /HPF (None Seen); Bilirubin Negative (Negative); Blood Negative (Negative); Epithelial Cells None Seen /HPF (None Seen); Glucose, Urine Negative (Negative); Hyaline Casts NONE SEEN /LPF (0-2); Ketones Negative (Negative); Leukocyte Esterase Negative (Negative); Nitrite Negative (Negative); Ph 7.5 (4.6-8.0); Protein,Urine Dip Negative (Negative); RBC 0-2 /HPF (0-5); Specific Gravity <=1.005 (1.005-1.030); Urobilinogen 0.2 mg/dL (0.2); WBC 0-2 /HPF (0-5)
[2022-12-23 16:50] LABS: ADD URINE CULTURE? NO (NO)
[2022-12-23 17:14] VITALS: BP 112/75; PULSE 103
--- NOTE | 2022-12-23 18:04 | XRAY ---
CLINICAL HISTORY:Neutropenia, patient is on chemotherapy. COMPARISON:12/13/2014. TECHNIQUES:X-ray of the chest, AP- 1 view. FINDINGS: A radiographic examination of the chest demonstrates clear lungs. There is no evidence of any focal area of consolidation. Normal configuration of the mediastinum. The meghann are normal in size and position. The cardiac size is normal. The tracheal lucency is centrally placed. The costophrenic and cardiophrenic angles are clear. Unremarkable thoracic bony cage with no definite fractures detected. The interval placement of cole catheter is seen with its tip at the atrio-caval junction. IMPRESSION: 1. Unremarkable x-ray of the chest. 2. No acute cardiopulmonary disease process noted. 3. Interval placement of cole catheter is seen with its tip at the atrio-caval junction. Electronically Signed by: Paco John MD. (Study Signed: 12/23/2022 16:25:52 FISHERMAN HELPER)
== END 2022-12-23 17:45 | disposition home or self-care (01) ==
LOC: ED 15:11
DX: D70.9 Neutropenia, unspecified (principal); R53.83 Other fatigue; R53.1 Weakness; R51.9 Headache, unspecified; R11.0 Nausea; C50.912 Malignant neoplasm of unspecified site of left female breast; C50.911 Malignant neoplasm of unspecified site of right female breast; I10 Essential (primary) hypertension; E11.9 Type 2 diabetes mellitus without complications; Z79.85 Long-term (current) use of injectable non-insulin antidiabetic drugs; Z79.899 Other long term (current) drug therapy
CPT/HCPCS: 0241U; 36415; 71045; 80053; 81001; 83735; 84484; 85025; 93005; 96374; 99284; 96360; 96361; 96365; J1956; J2405

== ENCOUNTER 2024-05-13 08:19 | Day surgery (SDC) | payer BC ==
--- NOTE | 2024-05-12 15:43 | HP ---
HISTORY AND PHYSICAL HISTORY OF PRESENT ILLNESS: She had a history of breast cancer in the past. Her port is not functioning now, not using it anyway and needs removal. PAST MEDICAL HISTORY: Has had bilateral breast cancer in the past, asthma, rheumatoid arthritis, anxiety, reflux, hypertension, heartburn. HOME MEDICATIONS: Vitamin D3, anastrozole, trazodone, Effexor XR, clonazepam, vitamin B complex, and Claritin. ALLERGIES: Penicillin, lactose, latex, strawberries, Tegaderm. She has sensitivity to opioid-like analgesics in the past. PAST SURGICAL HISTORY: She has had bilateral mastectomies in the past. She has had appendectomy. She has had in the past. She has had tubal in the past, ankle surgery in the past, renal calculi in the past, left foot surgery, and cholecystectomy. SOCIAL HISTORY: No smoking or alcohol abuse. FAMILY HISTORY: COPD, bladder cancer. REVIEW OF SYSTEMS: Twelve systems reviewed. No chest pain or palpitations. Other systems negative or noncontributory as above and per preadmission questionnaire. PHYSICAL EXAMINATION: VITAL SIGNS: Height 5 foot. BMI 37. GENERAL: No acute distress. HEENT: Sclerae nonicteric. NECK: No JVD. CHEST: Equal excursion, nonlabored breathing. CARDIOVASCULAR: Regular rate and rhythm. ABDOMEN: Soft. EXTREMITIES: No cyanosis or edema. NEUROLOGIC: Alert and oriented, moving all extremities symmetrically. PSYCHIATRIC: Appropriate mood and affect. SKIN: Dry. IMPRESSION: No longer using port. Recommend removal. She had prior history of breast cancer in the past. Risks of the procedure including but not limited to bleeding or infection, possibly requiring packing; risk of hematoma, seroma, aches, pains, burning, or numbness; risk of anesthesia, DVT, PE, pneumonia; risk of catheter scarred in, possibly requiring tying off or just removing port; general risk of anesthesia or sedation but not limited to. We will proceed with outpatient removal of tunneled Port-a-Cath as an outpatient under IV sedation MAC.
[2024-05-13] MEDS ORDERED: Lactated Ringers 1,000 ML IV ONE (08:44)
[2024-05-13] MEDS: Lactated Ringers 1,000 ML IV SCH (08:59)
[2024-05-13] MEDS ORDERED: XYLOCAINE 1% HCL 20 ML MDV ONE ×2 (10:07→11:21)
[2024-05-13] MEDS ORDERED: Lactated Ringers 0 ML IV ONE (10:08)
[2024-05-13 11:55] VITALS: TEMP 98.6
[2024-05-13 11:56] VITALS: O2SAT 98
[2024-05-13 11:58] VITALS: BP 164/82; PULSE 64; RESP 16
--- NOTE | 2024-05-14 10:15 | OP ---
SURGERY DATE/TIME: 05/13/2024 1030 - PREOPERATIVE DIAGNOSIS: Prior history of breast cancer, no longer using Port-A-Cath and desires removal. POSTOPERATIVE DIAGNOSIS: Prior history of breast cancer, no longer using Port-A-Cath and desires removal. PROCEDURE: Removal of tunneled Port-A-Cath and catheter. SURGEON: Jose Ro MD ANESTHESIA: Local with 1% lidocaine. ESTIMATED BLOOD LOSS: Minimal. 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 DESCRIPTION OF PROCEDURE AND FINDINGS: The patient was taken to the operating room. The staff had given her IV preop. She decided to proceed with local alone. She was taken to the operating room, prepped and draped in usual sterile fashion. After official time-out, no disagreement in planned procedure. Lidocaine 1% local was infiltrated in a field pattern around the old port site. Dissection carried down through the skin, incision down directly onto the port. The 2 Prolene sutures were freed and removed and passed off. The port was mobilized up out of the pocket, and then the catheter and port removed intact and passed off. The tunnel tract was closed with 3-0 Vicryl. Fibrous pocket closed with 3-0 Vicryl. The patient had a little small hematoma. Whether she had gotten clot busting agent previously or not, I am not sure, but this had been evacuated prior to closing the fibrous pocket. Subq closed with 3-0 Vicryl. Skin closed with 4-0 Vicryl. Steri-Strips, sterile dressings were also applied. The patient tolerated the procedure well. There were no immediate complications.
== END 2024-05-13 12:06 | disposition home or self-care (01) ==
LOC: SDC 08:19
PROVIDERS: ATTEND Surgery
DX: Z45.2 Encounter for adjustment and management of vascular access device (principal); Z85.3 Personal history of malignant neoplasm of breast; Z79.899 Other long term (current) drug therapy
CPT/HCPCS: 82947